=== PATIENT | male | born 1995 | race African-American/Black ===

== ENCOUNTER 2017-04-09 16:34 | Inpatient (IN) | payer OTHER ==
[~2017-04-09] VITALS: Ht 180.3 cm; Wt 89.1 kg
[2017-04-09] MEDS ORDERED: MORPHINE 2 MG/ML 1ML SYRINGE IV ONE (19:15)
[2017-04-09] MEDS ORDERED: MORPHINE 4 MG/ML 1ML SYRINGE As Ordered ONE (19:19)
[2017-04-09 19:22] LABS: BASO % 0.2 % (0.0-1.0); EOS # 0.2 K/mm3 (0.0-0.50); EOS % 1.1 % (0.0-3.0); LARGE UNSTAINED CELL # 0.1 K/mm3 (0.0-0.4); LARGE UNSTAINED CELL % 0.3 % (0.0-4.0); LYMPH # 0.7 K/mm3 (1.5-6.5); LYMPH % 4.6 % (24.0-44.0); MEAN CORPUSCULAR HEMOGLOBIN 30.2 pg (27.0-33.0); MEAN CORPUSCULAR HGB CONC 33.3 g/dl (32.0-36.5); MEAN CORPUSCULAR VOLUME 90.7 fl (80.0-96.0); MONO # 0.5 K/mm3 (0.0-0.8); MONO % 3.1 % (0.0-5.0); NEUTROPHILS % 90.6 % (36.0-66.0); PLATELET COUNT, AUTOMATED 263 k/mm3 (150-450); RED CELL DISTRIBUTION WIDTH 11.9 % (11.5-14.5); WHITE BLOOD COUNT 14.4 K/mm3 (4.0-10.0)
[2017-04-09 20:03] LABS: ALBUMIN 4.5 GM/DL (3.2-5.2); ALKALINE PHOSPHATASE 118 U/L (45-117); ALT/SGPT 25 U/L (12-78); ANION GAP 8 MEQ/L (8-16); AST/SGOT 16 U/L (15-37); BILIRUBIN,TOTAL 0.9 MG/DL (0.2-1.0); BLOOD UREA NITROGEN 8 MG/DL (7-18); CALCIUM LEVEL 9.6 MG/DL (8.5-10.1); CARBON DIOXIDE LEVEL 30 MEQ/L (21-32); CHLORIDE LEVEL 100 MEQ/L (98-107); GLOMERULAR FILTRATION RATE > 60.0 (>60); GLUCOSE, FASTING 100 MG/DL (70-105); POTASSIUM SERUM 3.7 MEQ/L (3.5-5.1); SODIUM LEVEL 138 MEQ/L (136-145)
[2017-04-09] MEDS ORDERED: ISOVUE-370 76% 100ML VIAL (Q9967) As Ordered ONE (20:13)
[2017-04-09] MEDS ORDERED: MORPHINE 4 MG/ML 1ML SYRINGE IV ONE (20:15)
--- NOTE | 2017-04-09 21:08 | REP ---
Clinical: Right lower quadrant pain. Technique: Axial contrast enhanced images from the lung bases to the pubic symphysis using 100 ml Isovue 370 intravenous contrast material with coronal and sagittal re-formations. Findings: Acute appendicitis is appreciated with a dilated fluid filled appendix measuring 17 mm diameter and a 12 mm appendicolith. Moderate amount of surrounding inflammatory stranding and free fluid extends into the deep pelvis. No free air to suggest perforation. No evidence for bowel obstruction. No formed abscess. Liver, spleen, pancreas, gallbladder, bilateral adrenal glands and kidneys are normal. The remainder of the enteric system is unremarkable. The pelvis demonstrates partially collapsed normal bladder and age appropriate prostate/seminal vesicles. Surrounding musculoskeletal structures are intact. Lung bases are clear. Impression: 1. Moderate acute appendicitis with a 17 mm fluid filled appendix and 12 mm appendicolith along with moderate surrounding inflammatory stranding and fluid which extends into the deep pelvis. No associated bowel obstruction, free air to suggest perforation, or abscess. Signed by Jacob Alberts MD 04/09/2017 08:59 P
[2017-04-09] MEDS ORDERED: PIPERACILLIN/TAZOBACTAM SOD 3.375 GM in D5W MINI-BAG PLUS 50 ML IV ONE (21:30)
[2017-04-09] MEDS ORDERED: BUPIVACAINE/EPIN 0.25% 30 ML VIAL As Ordered ONE (22:47)
[2017-04-09] MEDS ORDERED: NEOSTIGMINE 1MG/ML 5 ML SYRINGE (J2710) As Ordered ONE (22:50)
[2017-04-09] MEDS ORDERED: dexameTHASONE 4 MG/ML 1ML VIAL (J1100) As Ordered ONE (22:50)
[2017-04-09] MEDS ORDERED: KETOROLAC 60 MG/2 ML VIAL (J1885) As Ordered ONE (22:50)
[2017-04-09] MEDS ORDERED: LIDOCAINE 2% INJ 100 MG/5 ML SYRINGE As Ordered ONE (22:50)
[2017-04-09] MEDS ORDERED: PROPOFOL 200 MG/20 ML VIAL As Ordered ONE (22:50)
[2017-04-09] MEDS ORDERED: ONDANSETRON 4MG/2ML VIAL (J2405) As Ordered ONE (22:50)
[2017-04-09] MEDS ORDERED: MIDAZOLAM INJ 2 MG/2 ML VIAL (J2250) As Ordered ONE (22:50)
[2017-04-09] MEDS ORDERED: GLYCOPYRROLATE INJ 0.2 MG/ML 2 ML VIAL As Ordered ONE (22:50)
[2017-04-09] MEDS ORDERED: ROCURONIUM BROMIDE 50 MG/5 ML VIAL/SYRINGE As Ordered ONE ×2 (22:50→23:07)
[2017-04-09] MEDS ORDERED: fentaNYL 100 MCG/2 ML INJECTION (J3010) As Ordered ONE (22:50)
[2017-04-09] MEDS ORDERED: MORPHINE 10 MG/ML 1ML VIAL As Ordered ONE (22:58)
[2017-04-09] MEDS ORDERED: LR 1,000 ML IV SCH (23:50)
[2017-04-10] VITALS (10 sets, daily range): BP systolic 124–160; BP diastolic 56–82
[2017-04-10] MEDS ORDERED: ACETAMINOPHEN TAB 650MG DOSE (2X325MG) PO PRN
[2017-04-10] MEDS ORDERED: METOCLOPRAMIDE INJ 10MG/2ML VIAL (J2765) IV PRN
[2017-04-10] MEDS ORDERED: PROMETHAZINE INJ 25 MG/ML VIAL (J2550) IV PRN
[2017-04-10] MEDS ORDERED: fentaNYL 100 MCG/2 ML INJECTION (J3010) IV PRN (00:15)
[2017-04-10] MEDS ORDERED: MORPHINE 2 MG/ML 1ML SYRINGE IV PRN ×2 (00:15)
[2017-04-10] MEDS ORDERED: ONDANSETRON 4MG/2ML VIAL (J2405) IV PRN ×2 (00:15)
[2017-04-10] MEDS ORDERED: LR 1,000 ML IV SCH (00:15)
[2017-04-10] MEDS ORDERED: ADVI200C5 PO (02:17)
[2017-04-10] MEDS ORDERED: TYLE500T78 PO (02:17)
[2017-04-10] MEDS: NORCO, ANEXSIA 5/325MG TABLET (HYDROcodone/ACETAMINOPHEN) PO PRN ×4 (03:14→19:19)
[2017-04-10] MEDS: PIPERACILLIN/TAZOBACTAM SOD 3.375 GM in D5W MINI-BAG PLUS 50 ML IV SCH ×4 (04:00→21:50)
[2017-04-10] MEDS ORDERED: AMOX500T2 PO (14:14)
[2017-04-10] MEDS ORDERED: NORCOTAB PO (14:14)
[2017-04-10] MEDS: KETOROLAC 30 MG/ML VIAL (J1885) IV PRN (21:54)
[2017-04-11] VITALS: BP 129/60
[2017-04-11 04:00] VITALS: BP 154/75
[2017-04-11] MEDS: PIPERACILLIN/TAZOBACTAM SOD 3.375 GM in D5W MINI-BAG PLUS 50 ML IV SCH ×4 (04:37→22:54)
[2017-04-11] MEDS: NORCO, ANEXSIA 5/325MG TABLET (HYDROcodone/ACETAMINOPHEN) PO PRN ×2 (04:39→10:32)
[2017-04-11 08:00] VITALS: BP 149/84
[2017-04-11] MEDS: KETOROLAC 30 MG/ML VIAL (J1885) IV PRN ×2 (08:00→19:57)
[2017-04-11 09:56] LABS: BASO % 0.1 % (0.0-1.0); EOS # 0.1 K/mm3 (0.0-0.50); EOS % 0.6 % (0.0-3.0); LARGE UNSTAINED CELL # 0.2 K/mm3 (0.0-0.4); LARGE UNSTAINED CELL % 1.2 % (0.0-4.0); LYMPH # 0.8 K/mm3 (1.5-6.5); LYMPH % 5.9 % (24.0-44.0); MEAN CORPUSCULAR HEMOGLOBIN 30.7 pg (27.0-33.0); MEAN CORPUSCULAR HGB CONC 34.1 g/dl (32.0-36.5); MEAN CORPUSCULAR VOLUME 89.8 fl (80.0-96.0); MONO # 0.7 K/mm3 (0.0-0.8); MONO % 4.6 % (0.0-5.0); NEUTROPHILS # 12.4 K/mm3 (1.8-7.7); NEUTROPHILS % 87.7 % (36.0-66.0); PLATELET COUNT, AUTOMATED 306 k/mm3 (150-450); RED CELL DISTRIBUTION WIDTH 11.6 % (11.5-14.5); WHITE BLOOD COUNT 14.2 K/mm3 (4.0-10.0)
[2017-04-11 10:17] LABS: ANION GAP 10 MEQ/L (8-16); BLOOD UREA NITROGEN 17 MG/DL (7-18); CALCIUM LEVEL 9.1 MG/DL (8.5-10.1); CARBON DIOXIDE LEVEL 28 MEQ/L (21-32); CHLORIDE LEVEL 101 MEQ/L (98-107); CREATININE FOR GFR 1.23 MG/DL (0.70-1.30); GLOMERULAR FILTRATION RATE > 60.0 (>60); GLUCOSE, FASTING 114 MG/DL (70-105); POTASSIUM SERUM 3.4 MEQ/L (3.5-5.1); SODIUM LEVEL 139 MEQ/L (136-145)
[2017-04-11 12:00] VITALS: BP 131/76
[2017-04-11 16:00] VITALS: BP 126/62
[2017-04-11] MEDS: POTASSIUM CHLORIDE 10 MEQ SR TABLET PO SCH (16:03)
[2017-04-11 20:00] VITALS: BP 124/67
[2017-04-11] MEDS ORDERED: MOM 30ML SUSPENSION UDC PO ONE (20:30)
[2017-04-12] VITALS: BP 131/70
[2017-04-12] MEDS: KETOROLAC 30 MG/ML VIAL (J1885) IV PRN ×3 (03:52→19:55)
[2017-04-12] MEDS: PIPERACILLIN/TAZOBACTAM SOD 3.375 GM in D5W MINI-BAG PLUS 50 ML IV SCH ×4 (03:53→22:40)
[2017-04-12 04:00] VITALS: BP 128/61
[2017-04-12 06:50] LABS: BASO % 0.2 % (0.0-1.0); EOS # 0.2 K/mm3 (0.0-0.50); EOS % 1.5 % (0.0-3.0); LARGE UNSTAINED CELL # 0.1 K/mm3 (0.0-0.4); LYMPH # 1.6 K/mm3 (1.5-6.5); LYMPH % 14.1 % (24.0-44.0); MEAN CORPUSCULAR HEMOGLOBIN 30.6 pg (27.0-33.0); MEAN CORPUSCULAR HGB CONC 33.6 g/dl (32.0-36.5); MEAN CORPUSCULAR VOLUME 91.2 fl (80.0-96.0); MONO # 0.5 K/mm3 (0.0-0.8); MONO % 4.4 % (0.0-5.0); NEUTROPHILS # 8.4 K/mm3 (1.8-7.7); NEUTROPHILS % 78.7 % (36.0-66.0); PLATELET COUNT, AUTOMATED 255 k/mm3 (150-450); RED CELL DISTRIBUTION WIDTH 11.8 % (11.5-14.5); WHITE BLOOD COUNT 10.7 K/mm3 (4.0-10.0)
[2017-04-12 08:00] VITALS: BP 128/60
[2017-04-12] MEDS: POTASSIUM CHLORIDE 10 MEQ SR TABLET PO SCH (09:07)
[2017-04-12 12:00] VITALS: BP 124/70
--- NOTE | 2017-04-12 14:45 | IPNPDOC ---
Subjective General Date/Time Seen The patient was seen on 04/12/17 at 6:00 am. Subject Chief Complaint/History The patient is a 21-year-old male admitted with a reason for visit of Appendicitis. Patient was Yesterday for nausea, vomiting, abdominal distention most likely ongoing ileus. He also vomited last night. He was given a dose of milk of magnesia which helped and he has had so far 3 loose bowel movements which has improved his abdominal distention. Current Medications Current Medications Current Medications Acetaminophen (Tylenol Tab) 650 mg Q4HP PRN PO MILD PAIN or TEMP > 101; Start 04/10/17 at 00:00; Stop 05/10/17 at 00:00 Acetaminophen/ Hydrocodone Bitart ([place], [place] 5/325) 1 tab Q4HP PRN PO MODERATE PAIN (PS 5-7) Last administered on 04/11/17 10:32; Start 04/10/17 at 00:00; Stop 04/17/17 at 00:00 Acetaminophen/ Hydrocodone Bitart ([place], [place]nexs[place] 5/325) 2 tab Q6HP PRN PO SEVERE PAIN (PS 8-10) Last administered on 04/10/17 09:45; Start 04/10/17 at 00 :00; Stop 04/17/17 at 00:00 Fentanyl Citrate (Sublimaze) 25 mcg Q5MP PRN IV MODERATE PAIN (PS 4-7); Start 04/10/17 at 00:15; Stop 04/10/17 at 01:14; Status DC Home Med (Med Rec Complete!) ASDIRECTED XX ; Start 04/10/17 at 02:30; Stop at 02:30; Status DC Ketorolac Tromethamine (ToRADol) 30 mg Q6HP PRN IV MILD/MODERATE PAIN (PS 1-7) Last administered on 04/12/17 12:41; Start 04/10/17 at 00:00; Stop 04/15/17 at 00:00 Lactated Ringer's 1,000 ml @ 80 mls/hr [id number] IV ; Start 04/10/17 at 00:15; Stop 04/10/17 at 01:14; Status DC Lactated Ringer's 1,000 ml @ 125 mls/hr Q8H IV Last administered on 04/10/17 03:14; Start 04/09/17 at 23:50; Stop 04/10/17 at 09:18; Status DC Metoclopramide HCl (REGLAN INJection) 10 mg Q6HP PRN IV NAUSEA OR VOMITING; Start 04/10/17 at 00:00; Stop 05/10/17 at 00:00 Morphine Sulfate (Morphine Sulfate Inj) 2 mg Q2HP PRN IV SEVERE PAIN (PS 8-10) ; Start 04/10/17 at 00:00; Stop 04/17/17 at 00:00 Morphine Sulfate (Morphine Sulfate Inj) 2 mg Q5MP PRN IV MODERATE/SEVERE PAIN ( PS 7-10); Start 04/10/17 at 00:15; Stop 04/10/17 at 01:14; Status DC Ondansetron HCl (ZOFRAN INJection) 4 mg Q4HP PRN IV NAUSEA OR VOMITING; Start 04/10/17 at 00:15; Stop 04/10/17 at 01:14; Status DC Ondansetron HCl (ZOFRAN INJection) 4 mg Q6HP PRN IV NAUSEA OR VOMITING Last administered on 04/11/17 06:47; Start 04/10/17 at 00:00; Stop 05/10/17 at 00: 00 Piperacillin Sod/ Tazobactam Sod 3.375 gm/Dextrose 50 ml @ 50 mls/hr Q6H IV Last administered on 04/12/17 09:07; Start 04/10/17 at 04:00; Stop 04/17/17 at 03:59 Potassium Chloride (Micro-K Extencaps) 40 meq DAILY PO Last administered on 09:07; Start 04/11/17 at 09:00; Stop 05/11/17 at 08:59 Promethazine HCl (PHENERGAN INJection) 12.5 mg Q6HP PRN IV NAUSEA; Start at 00:00; Stop 05/10/17 at 00:00 Allergies Coded Allergies: No Known Allergies (Unverified , 04/09/17) Objective Physical Examination Examination GENERAL APPEARANCE: More comfortable than he was yesterday. SKIN: Warm and dry. HEENT: Lips and mucosa are moist. NECK: Supple, no thyromegaly. No obvious jugular venous distention. LUNGS: Clear to auscultation bilaterally. No wheezing appreciated. HEART: No chest wall abnormalities. Regular rate and rhythm with no murmurs appreciated. ABDOMEN: Abdomen is mildly rounded, soft, still noticeably distended but less so than yesterday. Nontender and palpation at the port sites and previous drain site slightly right lower quadrant area. EXTREMITIES: Extremities have no deformities. No edema identified. Vital Signs Vital Signs Date Time Temp Pulse Resp B/P (MAP) Pulse Ox O2 Delivery O2 Flow Rate FiO2 04/12/17 12:00 99.1 74 18 124/70 (88) 99 Room Air MAXIMUM TEMPERATURE 100.2 at 4 AM I&Os I&O- Last 24 Hours up to 6 AM 04/12/17 06:00 Intake Total 1940 ml Output Total 1300 ml Balance 640 ml 3 loose BMs reported Laboratory Data Labs 24H Laboratory Tests 2 04/12/17 06:16: White Blood Count 10.7H, Red Blood Count 4.30, Hemoglobin 13.2L, Hematocrit 39.2L, Mean Corpuscular Volume 91.2, Mean Corpuscular Hemoglobin 30.6, Mean Corpuscular Hemoglobin Concent 33.6, Red Cell Distribution Width 11.8, Platelet Count 255, Neutrophils (%) (Auto) 78.7H, Lymphocytes (%) (Auto) 14.1L, Monocytes (%) (Auto) 4.4, Eosinophils (%) (Auto) 1.5, Basophils (%) (Auto) 0.2, Neutrophils # (Auto) 8.4H, Lymphocytes # (Auto) 1.6, Monocytes # (Auto) 0.5, Eosinophils # (Auto) 0.2, Basophils # (Auto) 0.0, Large Unclassified Cells % 1.0 , Large Unclassified Cells # 0.1 CBC/BMP Laboratory Tests 04/12/17 06:16 Red Blood Count 4.30, Mean Corpuscular Volume 91.2, Mean Corpuscular Hemoglobin 30.6, Mean Corpuscular Hemoglobin Concent 33.6, Red Cell Distribution Width 11.8 , Neutrophils (%) (Auto) 78.7 H, Lymphocytes (%) (Auto) 14.1 L, Monocytes (%) ( Auto) 4.4, Eosinophils (%) (Auto) 1.5, Basophils (%) (Auto) 0.2, Neutrophils # ( Auto) 8.4 H, Lymphocytes # (Auto) 1.6, Monocytes # (Auto) 0.5, Eosinophils # ( Auto) 0.2, Basophils # (Auto) 0.0 Impression Postop day 3 laparoscopic appendectomy for perforated appendicitis Postoperative ileus improved I will restart his diet this seems his ileus has improved. He still looks mildly distended so he may not be able to tolerate diet yet. We will see how he does during the day if he is ready for discharge. Plan / VTE VTE Prophylaxis Ordered?: Yes HAZEL STYLES MD Apr 12, 2017 14:45
[2017-04-12 18:00] VITALS: BP 125/77
[2017-04-12 20:00] VITALS: BP 141/83
[2017-04-12] MEDS: NORCO, ANEXSIA 5/325MG TABLET (HYDROcodone/ACETAMINOPHEN) PO PRN (20:02)
[2017-04-13] VITALS: BP 128/61
[2017-04-13 04:00] VITALS: BP 128/74
[2017-04-13] MEDS: PIPERACILLIN/TAZOBACTAM SOD 3.375 GM in D5W MINI-BAG PLUS 50 ML IV SCH ×2 (04:04→11:49)
[2017-04-13] MEDS: NORCO, ANEXSIA 5/325MG TABLET (HYDROcodone/ACETAMINOPHEN) PO PRN ×2 (04:09→13:10)
[2017-04-13 08:20] VITALS: BP 140/79
[2017-04-13] MEDS ORDERED: FLAG500T PO (10:24)
[2017-04-13] MEDS: POTASSIUM CHLORIDE 10 MEQ SR TABLET PO SCH (10:41)
--- NOTE | 2017-04-22 08:48 | DSES ---
DATE OF ADMISSION: 04/12/2017 DATE OF DISCHARGE: 04/13/2017 PRINCIPAL DIAGNOSIS: Acute appendicitis with localized perforation and peritonitis. ASSOCIATED DIAGNOSIS: History of meningitis as a child. No other medical history. MEDICATIONS: None. ALLERGIES: None. HISTORY OF PRESENT ILLNESS: The patient is a 21-year-old male who presents to the emergency room with a several-day history of abdominal pain worsening over the last 12 to 24 hours with developing increasing persistent pain. White count was elevated to 14,000 on admission with evidence of acute appendicitis. On his physical examination, he had a benign exam except for his abdominal exam, which was slightly distended throughout but mostly tender in the right lower quadrant/suprapubic area with guarding and rebound. HOSPITAL COURSE SUMMARY: The patient was admitted with the above diagnosis of acute appendicitis, was taken to the operating room where he underwent laparoscopic appendectomy. He actually had a small perforation in his appendix or at least some necrotic tissue on the appendix itself with a great deal of turbid fluid throughout his pelvis. A Vijay-Toscano drain was left at the time of the operation and he slowly had some recovery of his ileus over the ensuing few days because of a significant intra-abdominal infection present. Once he started tolerating a clear liquid diet, he was advanced to a regular diet. His Vijay-Toscano drain was discontinued and he was discharged to home on 04/13/2017. DISCHARGE MEDICATIONS: Medications at the time of discharge include the following: - Augmentin - Flagyl - Tracy He was to follow up in my office in 2 weeks, sooner if there are any question, concerns, fevers or chills. Otherwise, he was instructed to slowly increase his activity over time and will return to regular activity after 2 weeks.
--- NOTE | 2017-04-22 09:04 | RO ---
DATE OF OPERATION: 04/09/2017 PREOPERATIVE DIAGNOSIS: Acute appendicitis. POSTOPERATIVE DIAGNOSIS: Acute appendicitis. PROCEDURE: Laparoscopic appendectomy. SURGEON: Rodríguez Arellano Jr., MD ANESTHESIA: General endotracheal anesthesia. ESTIMATED BLOOD LOSS: Minimal. FLUIDS: Crystalloid. DESCRIPTION OF PROCEDURE: Brief procedure summary: The patient was brought to the operating room and was given general anesthesia. After adequate anesthesia was established, the patient was prepped and draped in the usual sterile fashion. Next, a supraumbilical incision was made with skin knife. Blunt dissection was carried down to fascia. Fascia was grasped with Adalberto clamps, elevated, and a Veress needle placed into the abdominal cavity, insufflated to 15 mm of pressure. A 12 mm trocar was placed at the umbilicus and under direct visualization. Suprapubic left lower quadrant 5 mm trocars were placed. Once these were placed, the patient was placed on a steep Trendelenburg position left side down, and the appendix could be appreciated. There was a significant amount of turbid fluid in the pelvis, which was suctioned out, irrigated out, and then the appendix area was dissected free from the lateral pelvic sidewall using blunt dissection but as well as Harmonic scalpel. Eventually, once these were freed, the mesentery of the appendix was taken with harmonic scalpel all the way to the base of the cecum. Once this was well visualized circumferentially, the appendiceal base was transected using a ALY stapler, placed in an EndoCatch bag, and brought out through the umbilicus. A great deal of irrigation was used, and all the turbid fluid was removed. However, with a significant amount of turbid fluid and evidence of a probable perforation in the appendix itself, a Vijay-Toscano drain was left in the bed of the dissection. This was brought out through a trocar site. Next, all trocars were removed under direct visualization. 0 Vicryl was used to close the fascia at the umbilicus, and all incisions were closed with 4-0 Vicryl. Steri-Strips and a dry sterile dressing were applied. The patient was awakened, extubated, and brought to the recovery room awake, alert, and hemodynamically stable. Sponge and needle counts correct times two.
== END 2017-04-13 13:20 | disposition home or self-care (01) | DRG 343 ==
LOC: M ED 16:34 → M SDC 21:33 → M PED 04-10 00:54 → M SDC 04-12 18:04 → M PED 04-12 18:05
PROVIDERS: ADMIT Surgery; ATTEND Surgery
PROC: 0DTJ4ZZ Resection of Appendix, Percutaneous Endoscopic Approach (ICD-10-PCS; principal; 2017-04-12)
DX: K35.80 Unspecified acute appendicitis (principal)